=== PATIENT | female | born 1985 ===

== ENCOUNTER 2021-05-11 10:01 | Outpatient (CLI) | payer OTHER | END 2021-05-11 11:00 | disposition home or self-care (01) | LOC: PRENATAL 10:01 | PROVIDERS: ATTEND Obstetrics & Gynecology Maternal & Fetal Medicine | DX: O35.0XX1 Maternal care for (suspected) central nervous system malformation in fetus, fetus 1 (principal); O35.3XX1 Maternal care for (suspected) damage to fetus from viral disease in mother, fetus 1; O98.512 Other viral diseases complicating pregnancy, second trimester; O28.1 Abnormal biochemical finding on antenatal screening of mother; O26.872 Cervical shortening, second trimester; Z36.89 Encounter for other specified antenatal screening; Z3A.24 24 weeks gestation of pregnancy ==

== ENCOUNTER → 2021-06-16 | Outpatient (CLI) | payer OTHER | END | disposition home or self-care (01) | LOC: PRENATAL 14:30 | PROVIDERS: ATTEND Obstetrics & Gynecology Maternal & Fetal Medicine | DX: O26.843 Uterine size-date discrepancy, third trimester (principal); O26.873 Cervical shortening, third trimester; O09.513 Supervision of elderly primigravida, third trimester; O28.1 Abnormal biochemical finding on antenatal screening of mother; Z36.89 Encounter for other specified antenatal screening; Z3A.30 30 weeks gestation of pregnancy ==